=== PATIENT | female | born 1985 | race Caucasian/White ===

== ENCOUNTER 2020-04-02 21:27 | Emergency (ER) | payer OTHER ==
--- NOTE | 2020-04-02 22:45 | ED Physician Documentation ---
History of Present Illness - Stated complaint Stated Complaint: RAPID HR, HAND NUMBNESS - Chief complaint Chief Complaint: Cardiac - History obtained from History obtained from: Patient - History of Present Illness Timing: Last night Pain level max: 0 Pain level now: 0 Improved by: no ameliorating factors Worsened by: no exacerbating factors - Additonal information Additional information: c/o episodic rapid, pounding palpitations since last night. episode last night was at rest and lasted few minutes, reoccurred tonight and lasted approximately 1 hour. she had a reading on a wrist device indicating her heart rate was 100s- 110s at rest. episodes are associated with bilateral hand paresthesias. asymptomatic at the time of this evaluation Review of Systems Constitutional: reports: Reviewed and negative Cardiac: reports: Palpitations. denies: Chest pain / pressure, Pedal edema, Calf pain Respiratory: reports: Reviewed and negative GI: reports: Reviewed and negative Musculoskeletal: denies: Extremity swelling PD PAST MEDICAL HISTORY - Past Medical History Past Medical History: No - Past Surgical History Past Surgical History: No - Present Medications Home Medications: Ambulatory Orders Medication Instructions Recorded Confirmed No Known Home Medications 04/02/20 04/02/20 - Allergies Allergies/Adverse Reactions: Allergies Allergy/AdvReac Type Severity Reaction Status Date / Time No Known Drug Allergies Allergy Verified 04/02/20 21:39 - Social History Does the pt smoke?: No Smoking Status: Never smoker Does the pt drink ETOH?: Yes Does the pt have substance abuse?: No - Immunizations Immunizations are current?: Yes - POLST Patient has POLST: No PD ED PE NORMAL - Vitals Vital signs reviewed: Yes - General General: Alert and oriented X 3, No acute distress, Well developed/nourished - HEENT HEENT: Moist mucous membranes - Neck Neck: Supple, no meningeal sign - Cardiac Cardiac: RRR, No murmur, No gallop - Respiratory Respiratory: No respiratory distress, Clear bilaterally Results - Vitals Vitals: Oxygen O2 Source Room air - EKG (time done) No standard instances Rate: Rate (enter#) (87) Rhythm: NSR [place]: Normal Intervals: Normal DC Ischemia: Normal ST segments - Labs Labs: Laboratory Tests 04/02/20 04/02/20 04/02/20 23:13 23:13 23:13 WBC 9.6 RBC 4.48 Hgb 13.0 Hct 38.2 MCV 85.3 MCH 29.0 MCHC 34.0 RDW 12.4 Plt Count 276 MPV 9.9 Neut # (Auto) 7.7 H Lymph # (Auto) 1.3 L [place] # (Auto) 0.4 Eos # (Auto) 0.2 Baso # (Auto) 0.0 Absolute Nucleated RBC 0.00 Nucleated RBC % 0.0 Sodium 140 Potassium 3.8 Chloride 103 Carbon Dioxide 28 Anion Gap 9.0 BUN 15 Creatinine 0.8 Estimated GFR (MDRD) 82 L Glucose 110 H Calcium 9.1 TSH 2.27 PD MEDICAL DECISION MAKING - ED course Complexity details: reviewed results, re-evaluated patient, considered differential, d/w patient ED course: NSR on monitor during ED stay. unremarkable lab results. might benefit from fur ther testing such as Holter monitor to evaluate for paroxysmal dysrhythmias (such as PSVT, PAF) Departure - Departure Disposition: 01 Home, Self Care Clinical Impression: Palpitations Condition: Good Instructions: ED Palpitations Follow-Up: [facility] Ar[facility] [Provider Group] Discharge Date/Time: 04/03/20 00:32
[2020-04-02 23:18] LABS: BASOPHILS % (AUTO) 0.4 %; EOSINOPHILS # (AUTO) 0.2 10^3/uL (0.0-0.7); LYMPHOCYTES # (AUTO) 1.3 10^3/uL (1.5-3.5); LYMPHOCYTES % (AUTO) 13.1 %; MEAN CORPUSCULAR VOLUME 85.3 fL (81.0-99.0); MEAN PLATELET VOLUME 9.9 fL (7.9-10.8); MONOCYTES # (AUTO) 0.4 10^3/uL (0.0-1.0); MONOCYTES % (AUTO) 4.6 %; NEUTROPHILS # (AUTO) 7.7 10^3/uL (1.5-6.6); NEUTROPHILS % (AUTO) 79.6 %; PLT - PLATELET COUNT 276 10^3/uL (130-450); RED BLOOD COUNT 4.48 10^6/uL (4.20-5.40); RED CELL DISTRIBUTION WIDTH 12.4 % (12.0-15.0); WHITE BLOOD COUNT 9.6 x10^3/uL (4.8-10.8)
[2020-04-02 23:28] LABS: CALCIUM 9.1 mg/dL (8.5-10.3); CREATININE 0.8 mg/dL (0.4-1.0)
[2020-04-03 00:30] VITALS: BP 108/69
== END 2020-04-03 00:32 | disposition home or self-care (01) ==
LOC: ED 21:27
DX: R00.2 Palpitations (principal); R20.2 Paresthesia of skin; R20.0 Anesthesia of skin
CPT/HCPCS: 36415; 80048; 84443; 85025; 93005; 99284

== ENCOUNTER 2021-11-20 16:22 | Emergency (ER) | payer OTHER ==
[2021-11-20 16:28] VITALS: BP 127/83
--- NOTE | 2021-11-20 16:30 | ED Physician Documentation ---
PD HPI UPPER EXT INJURY - Stated complaint Stated Complaint: RT FINGER LAC/INJ - Chief complaint Chief Complaint: Laceration - History obtained from History obtained from: Patient - History of Present Illness Location: Right, Finger (index and middle fingers lacerated with paunch trimmer.) Type of injury: Laceration Where injury occurred: Home Timing - onset: How many minutes ago (30), Today Timing - details: Abrupt onset, Still present (she put pressure on wounds with clean towel from home.) Worsened by: Palpating Associated symptoms: No: Weakness, Numbness Similar symptoms before: Has not had sx before Recently seen: Not recently seen Review of Systems Skin: reports: Laceration (s) Neurologic: denies: Focal weakness, Numbness PD PAST MEDICAL HISTORY - Past Medical History Past Medical History: Yes Cardiovascular: None Respiratory: None Neuro: None Endocrine/Autoimmune: None GI: None TRACK HOE OPERATOR: None : None HEENT: None Psych: None Musculoskeletal: None Derm: None - Past Surgical History Past Surgical History: No Ortho: Arthroscopic surgery - Present Medications Home Medications: Ambulatory Orders Medication Instructions Recorded Confirmed No Known Home Medications 04/02/20 11/20/21 - Allergies Allergies/Adverse Reactions: Allergies Allergy/AdvReac Type Severity Reaction Status Date / Time No Known Drug Allergies Allergy Verified 11/20/21 16:24 - Social History Does the pt smoke?: No Smoking Status: Never smoker Does the pt drink ETOH?: Yes Does the pt have substance abuse?: No - Immunizations Immunizations are current?: Yes - POLST Patient has POLST: No PD ED PE NORMAL - General General: Alert and oriented X 3, Well developed/nourished - Derm Derm: Normal color, Warm and dry - Extremities Extremities: Other (Right hand has 2 lacerations. Index finger proximal phalanx palmar side with 1.3 cm laceration to fatty tissue and no foreign bodies. Slightly irregular edges. Middle finger distal phalanx with 1.6 cm flap laceration without foreign bodies. Mild bleeding still. Also irregular edge.) - Neuro Neuro: Alert and oriented X 3, No motor deficit, No sensory deficit, Normal speech Results - Vitals Vitals: Vital Signs - 24 hr 11/20/21 16:24 Temperature 36.6 C Heart Rate 89 Respiratory 16 Rate Blood Pressure 127/83 H O2 Saturation 100 Oxygen O2 Source Room air Procedures - Laceration (location) right index finger Length in cm: 1.3 Wound type: Linear, Into subcut fat, Clean Neurovascular status: Sensory intact, Motor intact, Vascular intact Tendon involvement: Tendon intact Anesthesia: Lidocaine 2% Wound preparation: Irrigated copiously NS, Wound explored, To the base, debridement of wound edges (traumatic laceration/avulsion) Skin layer closure: Nylon, Interrupted, Size #-0 - enter number (4), Sutures - enter # (4) Other: Patient tolerated well, No complications, Neurovascular intact, Dressing applied right middle finger Length in cm: 2 Wound type: Flap, Into subcut fat, Clean Neurovascular status: Sensory intact, Motor intact, Vascular intact Tendon involvement: Tendon intact Anesthesia: Lidocaine 2% Wound preparation: Irrigated copiously NS, debridement of wound edges (traumatic laceration/avulsion) Skin layer closure: Nylon, Interrupted, Size #-0 - enter number (4), Sutures - enter # (6) Other: Patient tolerated well, No complications, Neurovascular intact, Dressing applied, Tetanus UTD Departure - Departure Disposition: 01 Home, Self Care Clinical Impression: Finger laceration Qualifiers: Encounter type: initial encounter Finger: unspecified finger Damage to nail status: without damage Foreign body presence: without foreign body Laterality: right Qualified Code(s): S61.219A - Laceration without foreign body of unspecified finger without damage to nail, initial encounter Condition: Stable Record reviewed to determine appropriate education?: Yes Instructions: ED Laceration Hand Follow-Up: Leela Renner ARNP [Primary Care Provider] - Comments: It is okay to wash and shower. Clean off the wound twice a day with soap and water, or peroxide and water. Apply some antibiotic ointment to it to keep it moist. Also to watch for signs of infection such as purulence, redness or increasing pain. Return to your primary care or the ER at the specified time for suture removal. Suture removal 8 to 10 days. Tylenol or ibuprofen is fine for pain. Discharge Date/Time: 11/20/21 17:31
[2021-11-20] MEDS ORDERED: LIDOCAINE 2% 10 ML MDV SUBQ ONE (16:35)
[2021-11-20] MEDS ORDERED: LIDOCAINE-MPF 2% 5 ML VIAL SUBQ ONE (17:00)
[2021-11-20] MEDS ORDERED: BACITRACIN ZINC OINT 1 PACKET TOP STA (17:19)
== END 2021-11-20 17:31 | disposition home or self-care (01) ==
LOC: ED 16:22
DX: S61.210A Laceration without foreign body of right index finger without damage to nail, initial encounter (principal); S61.212A Laceration without foreign body of right middle finger without damage to nail, initial encounter; W29.3XXA Contact with powered garden and outdoor hand tools and machinery, initial encounter; Y93.H2 Activity, gardening and landscaping; Y92.007 Garden or yard of unspecified non-institutional (private) residence as the place of occurrence of the external cause
CPT/HCPCS: 12002; 99282; A9270